=== PATIENT | male | born 1950 ===

== ENCOUNTER 2017-09-13 10:14 | Inpatient (IN) ==
[2017-09-13] MEDS ORDERED: ONDANSETRON 4 MG/2 ML VIAL IV STA (11:29)
[2017-09-13] MEDS ORDERED: SODIUM CHLORIDE 0.9% 1,000 ML IV STA ×2 (11:29→12:15)
[2017-09-13] MEDS ORDERED: fentaNYL 100 MCG/2 ML VIAL IV STA (11:30)
[2017-09-13 11:41] LABS: Basophils % 0.1 % (0.0-0.8); Hematocrit 25.3 VOL% (42.0-52.0); Hemoglobin 8.2 GM/DL (14.0-18.0); Immature Granulocytes % 0.8 %; Immature Granulocytes Absolute 0.07 #; Lymphocytes # 1.2 10*3/uL (1.4-4.0); Lymphocytes % 13.5 % (21.2-54.2); Mean Corpuscular HGB Conc 32.4 GM/DL (32-36); Mean Corpuscular Hemoglobin 31 PG (27-34); Mean Corpuscular Volume 96.9 FL (87-102); Mean Platelet Volume 11.7 FL (9.6-12.0); Monocytes # 1.7 10*3/uL (0.11-0.8); Monocytes % 18.9 % (1.7-12.7); Neutrophils # 6.1 10*3/uL (1.4-7.4); Neutrophils % 66.7 % (38.7-73.9); Red Blood Count 2.61 MC/CUMM (3.8-5.5); Red Cell Distribution Width 16.6 % (9.3-17.3); White Blood Count 9.1 T/CUMM (4-12)
[2017-09-13 11:45] LABS: Platelet Count 98 T/CUMM (130-400)
[2017-09-13] MEDS ORDERED: ONDANSETRON 4 MG/2 ML VIAL ONE (11:45)
[2017-09-13 11:48] LABS: INR 1.1; PT Patient Result 11.2 SECS; Partial Thromboplastin Time 24.7 SECS (0-40)
[2017-09-13 11:58] LABS: Albumin 2.5 G/DL (3.4-5.0); Bilirubin,Total 0.4 MG/DL (0.2-1.0); Calcium 8.4 MG/DL (8.5-10.1); Osmolality,Calculated 290.1 MOS/KG (273-304); Potassium 4.3 MMOL/L (3.5-5.1); Total Protein 6.1 G/DL (6.4-8.3)
[2017-09-13 12:02] LABS: Band Neutrophils 5 % (0-10); Lymphocytes 12 % (20-55); Myelocytes 1 %; Segmented Neutrophils 67 % (50-85); Total Cells Counted 100
[2017-09-13] MEDS ORDERED: fentaNYL 100 MCG/2 ML VIAL ONE (12:02)
[2017-09-13 12:03] LABS: Hypochromasia 1+; Microcytosis 1+; Platelet Estimate Decreased
[2017-09-13 12:04] LABS: Acanthocytes Few
[2017-09-13] MEDS ORDERED: guaiFENesin/DM ER 600-30 MG TABLET PO PRN (13:20)
[2017-09-13] MEDS ORDERED: MORPHINE 2 MG/1 ML SYRINGE IV PRN (13:20)
[2017-09-13] MEDS ORDERED: ACETAMINOPHEN 325 MG TABLET PO PRN ×2 (13:20)
[2017-09-13] MEDS ORDERED: diphenhydrAMINE CAP 25 MG CAPSULE PO PRN (13:20)
[2017-09-13] MEDS ORDERED: ONDANSETRON 4 MG/2 ML VIAL IV PRN (13:20)
[2017-09-13] MEDS ORDERED: SODIUM CHLORIDE 0.9% 1,000 ML IV SCH (13:30)
[2017-09-13] MEDS: DOCUSATE SODIUM 100 MG CAPSULE PO SCH ×2 (15:07→22:27)
[2017-09-13] MEDS: HALOPERIDOL 5 MG TABLET PO SCH ×2 (15:07→23:48)
[2017-09-13] MEDS: DIVALPROEX 500 MG TABLET PO SCH ×2 (15:07→22:28)
[2017-09-13] MEDS: SODIUM CHLORIDE 0.9% 1,000 ML IV SCH (15:08)
[2017-09-13] MEDS: BENZTROPINE 1 MG TABLET PO SCH ×2 (15:08→22:27)
[2017-09-13] MEDS: PANTOPRAZOLE 40 MG TABLET PO SCH (15:08)
[2017-09-13] MEDS ORDERED: SODIUM CHLORIDE 0.9% 1,000 ML IV PRN (17:08)
[2017-09-13] MEDS ORDERED: LURASIDONE 60 MG TABLET PO SCH (21:00)
[2017-09-13] MEDS: QUEtiapine 100 MG TABLET PO SCH (23:48)
[2017-09-14] MEDS: LURASIDONE 40 MG TABLET PO SCH ×2 (06:11→22:23)
[2017-09-14] MEDS: SODIUM CHLORIDE 0.9% 1,000 ML IV SCH ×3 (06:14→14:14)
[2017-09-14 06:21] LABS: Hematocrit 25.9 VOL% (42.0-52.0); Hemoglobin 8.9 GM/DL (14.0-18.0); Immature Granulocytes % 0.5 %; Immature Granulocytes Absolute 0.04 #; Lymphocytes # 1.3 10*3/uL (1.4-4.0); Lymphocytes % 15.7 % (21.2-54.2); Mean Corpuscular HGB Conc 34.4 GM/DL (32-36); Mean Corpuscular Hemoglobin 32 PG (27-34); Mean Corpuscular Volume 92.2 FL (87-102); Mean Platelet Volume 12.3 FL (9.6-12.0); Monocytes # 1.7 10*3/uL (0.11-0.8); Monocytes % 20.6 % (1.7-12.7); Neutrophils # 5.2 10*3/uL (1.4-7.4); Neutrophils % 63.2 % (38.7-73.9); Platelet Count 62 T/CUMM (130-400); Red Blood Count 2.81 MC/CUMM (3.8-5.5); Red Cell Distribution Width 16.6 % (9.3-17.3); White Blood Count 8.2 T/CUMM (4-12)
[2017-09-14 06:40] LABS: Band Neutrophils 11 % (0-10); Lymphocytes 14 % (20-55); Segmented Neutrophils 61 % (50-85); Total Cells Counted 100
[2017-09-14 06:41] LABS: Burr Cells Slight; Microcytosis 1+
[2017-09-14 06:42] LABS: Hypochromasia Slight; Ovalocytes Slight; Platelet Estimate Decreased
[2017-09-14 07:01] LABS: Calcium 7.9 MG/DL (8.5-10.1); Osmolality,Calculated 285.4 MOS/KG (273-304); Potassium 4.7 MMOL/L (3.5-5.1); Risk Ratio 1.6; Thyroid Stimulating Hormone 4.82 uIU/ml (0.358-3.74)
[2017-09-14] MEDS ORDERED: ceFAZolin 2,000 MG in PREMIX 1 EACH IV ONE (08:00)
[2017-09-14] MEDS: PANTOPRAZOLE 40 MG TABLET PO SCH (10:06)
[2017-09-14] MEDS: DIVALPROEX 500 MG TABLET PO SCH ×2 (10:06→22:23)
[2017-09-14] MEDS ORDERED: BACITRACIN OINT 0.9 GM PACK TOP ONE ×2 (10:54→13:33)
[2017-09-14] MEDS ORDERED: TRANEXAMIC ACID 1,000 MG/10 ML VIAL IV ONE (10:54)
[2017-09-14] MEDS ORDERED: LACTATED RINGERS 1,000 ML IV SCH (12:00)
[2017-09-14] MEDS ORDERED: ceFAZolin 1,000 MG VIAL ONE (12:42)
[2017-09-14] MEDS ORDERED: oxyCODONE IR 5 MG TABLET PO PRN ×2 (13:52)
[2017-09-14] MEDS ORDERED: MORPHINE 2 MG/1 ML SYRINGE IV PRN ×2 (13:52)
[2017-09-14 14:07] LABS: Apearance,Urine CLEAR (Clear); Bacteria,Urine Occasional /HPF (Few); Bilirubin,Urine Negative (Negative); Blood, Urine Negative (Negative); Glucose,Urine (UA) Negative (Negative); Ketones,Urine Negative (Negative); Nitrite,Urine Negative (Negative); Protein,Urine Negative; RBC,Urine 1 /HPF (0-4); Squamous Epithelial Cell,Urine Occasional /HPF (0-10); Urine Color Yellow (Yellow); Urine Specific Gravity 1.013 (1.001-1.035); WBC,Urine <1 /HPF (0-6)
[2017-09-14] MEDS ORDERED: SEVOFLURANE 1 UNIT/15 MINUTE INH ONE (14:13)
[2017-09-14] MEDS ORDERED: PROPOFOL 200 MG/20 ML VIAL IV ONE (14:13)
[2017-09-14] MEDS ORDERED: ONDANSETRON 4 MG/2 ML VIAL ONE (14:14)
[2017-09-14] MEDS ORDERED: PHENYLEPHRINE 1 MG/10 ML SYRINGE IV ONE (14:14)
[2017-09-14] MEDS: LACTATED RINGERS 1,000 ML IV SCH (14:14)
[2017-09-14] MEDS ORDERED: LACTATED RINGERS 1,000 ML IV ONE (14:14)
[2017-09-14] MEDS ORDERED: GLYCOPYRROLATE 0.4 MG/2 ML VIAL ONE (14:14)
[2017-09-14 14:34] LABS: Hematocrit 30.5 VOL% (42.0-52.0); Immature Granulocytes % 0.5 %; Immature Granulocytes Absolute 0.04 #; Lymphocytes # 1.2 10*3/uL (1.4-4.0); Lymphocytes % 14.3 % (21.2-54.2); Mean Corpuscular HGB Conc 32.8 GM/DL (32-36); Mean Corpuscular Hemoglobin 31 PG (27-34); Mean Corpuscular Volume 94.1 FL (87-102); Mean Platelet Volume 11.7 FL (9.6-12.0); Monocytes % 22.9 % (1.7-12.7); Neutrophils # 5.4 10*3/uL (1.4-7.4); Neutrophils % 62.3 % (38.7-73.9); Red Blood Count 3.24 MC/CUMM (3.8-5.5); Red Cell Distribution Width 16.3 % (9.3-17.3); White Blood Count 8.6 T/CUMM (4-12)
[2017-09-14 14:35] LABS: Platelet Count 64 T/CUMM (130-400)
[2017-09-14] MEDS: BENZTROPINE 1 MG TABLET PO SCH ×2 (15:57→22:21)
[2017-09-14] MEDS: DOCUSATE SODIUM 100 MG CAPSULE PO SCH ×2 (15:57→22:23)
[2017-09-14] MEDS: HALOPERIDOL 5 MG TABLET PO SCH ×2 (15:58→22:23)
[2017-09-14] MEDS: FLUoxetine 20 MG CAPSULE PO SCH (15:59)
[2017-09-14 16:38] LABS: Band Neutrophils 10 % (0-10); Lymphocytes 17 % (20-55); Segmented Neutrophils 54 % (50-85); Total Cells Counted 100
[2017-09-14 16:39] LABS: Platelet Estimate Decreased
[2017-09-14] MEDS: ceFAZolin 2,000 MG in PREMIX 1 EACH IV SCH (16:45)
[2017-09-14] MEDS: ACETAMINOPHEN 500 MG TABLET PO SCH (18:38)
[2017-09-14] MEDS: QUEtiapine 100 MG TABLET PO SCH (22:23)
[2017-09-15] MEDS: ACETAMINOPHEN 500 MG TABLET PO SCH ×3 (00:03→10:56)
[2017-09-15] MEDS ORDERED: HALOPERIDOL 5 MG/ML AMP IM ONE (01:16)
[2017-09-15] MEDS: LACTATED RINGERS 1,000 ML IV SCH (03:29)
[2017-09-15] MEDS: ceFAZolin 2,000 MG in PREMIX 1 EACH IV SCH (03:30)
[2017-09-15 05:11] LABS: ABG Base Excess 2.2 MMOL/L (-2.5-2.5); ABG HCO3 26.2 MMOL/L (20-26); ABG Oxygen Saturation 88.6 % (95-100); ABG PH 7.431 (7.35-7.45); ABG PO2 57.2 MM HG (80-95); ABG TCO2 24.5 MMOL/L (23-27); Allen Test Positive
[2017-09-15 05:23] LABS: Basophils % 0.2 % (0.0-0.8); Hematocrit 26.9 VOL% (42.0-52.0); Hemoglobin 9.2 GM/DL (14.0-18.0); Immature Granulocytes % 0.5 %; Immature Granulocytes Absolute 0.03 #; Lymphocytes # 0.6 10*3/uL (1.4-4.0); Lymphocytes % 9.3 % (21.2-54.2); Mean Corpuscular HGB Conc 34.2 GM/DL (32-36); Mean Corpuscular Hemoglobin 31 PG (27-34); Mean Corpuscular Volume 89.4 FL (87-102); Mean Platelet Volume 12.1 FL (9.6-12.0); Monocytes # 1.7 10*3/uL (0.11-0.8); Monocytes % 25.4 % (1.7-12.7); Neutrophils # 4.3 10*3/uL (1.4-7.4); Neutrophils % 64.6 % (38.7-73.9); Red Blood Count 3.01 MC/CUMM (3.8-5.5); Red Cell Distribution Width 16.5 % (9.3-17.3); White Blood Count 6.6 T/CUMM (4-12)
[2017-09-15 05:28] LABS: Platelet Count 59 T/CUMM (130-400)
[2017-09-15 05:58] LABS: Calcium 7.9 MG/DL (8.5-10.1); Osmolality,Calculated 288.1 MOS/KG (273-304); Potassium 4.5 MMOL/L (3.5-5.1)
[2017-09-15 05:59] LABS: Band Neutrophils 11 % (0-10); Lymphocytes 12 % (20-55); Segmented Neutrophils 52 % (50-85); Total Cells Counted 100
[2017-09-15 06:00] LABS: Giant Platelets Few; Hypochromasia 1+; Microcytosis Slight; Ovalocytes Slight; Platelet Estimate Decreased
[2017-09-15] MEDS: BENZTROPINE 1 MG TABLET PO SCH ×2 (10:47→21:51)
[2017-09-15] MEDS: HALOPERIDOL 5 MG TABLET PO SCH ×2 (10:47→21:47)
[2017-09-15] MEDS: PANTOPRAZOLE 40 MG TABLET PO SCH (10:48)
[2017-09-15] MEDS: FLUoxetine 20 MG CAPSULE PO SCH (10:48)
[2017-09-15] MEDS: DIVALPROEX 500 MG TABLET PO SCH ×2 (10:48→21:51)
[2017-09-15] MEDS: DOCUSATE SODIUM 100 MG CAPSULE PO SCH ×2 (10:53→21:44)
[2017-09-15] MEDS ORDERED: TUBERCULIN SKIN TEST 0.1 ML SYRINGE INTRADERM ONE (20:11)
[2017-09-15] MEDS: LURASIDONE 40 MG TABLET PO SCH (21:44)
[2017-09-15] MEDS: QUEtiapine 100 MG TABLET PO SCH (21:45)
[2017-09-16 05:47] LABS: Hematocrit 24.4 VOL% (42.0-52.0); Immature Granulocytes % 0.3 %; Immature Granulocytes Absolute 0.02 #; Lymphocytes # 0.9 10*3/uL (1.4-4.0); Lymphocytes % 14.7 % (21.2-54.2); Mean Corpuscular HGB Conc 32.8 GM/DL (32-36); Mean Corpuscular Hemoglobin 31 PG (27-34); Mean Corpuscular Volume 93.1 FL (87-102); Mean Platelet Volume 11.5 FL (9.6-12.0); Monocytes # 1.4 10*3/uL (0.11-0.8); Monocytes % 24.2 % (1.7-12.7); Neutrophils # 3.6 10*3/uL (1.4-7.4); Neutrophils % 60.8 % (38.7-73.9); Red Blood Count 2.62 MC/CUMM (3.8-5.5); Red Cell Distribution Width 16.5 % (9.3-17.3); White Blood Count 5.9 T/CUMM (4-12)
[2017-09-16 06:00] LABS: Platelet Count 60 T/CUMM (130-400)
[2017-09-16 06:09] LABS: Band Neutrophils 9 % (0-10); Giant Platelets Few; Hypochromasia 1+; Lymphocytes 15 % (20-55); Ovalocytes Slight; Platelet Estimate Decreased; Segmented Neutrophils 57 % (50-85); Total Cells Counted 100
[2017-09-16 06:10] LABS: Microcytosis Slight
[2017-09-16 06:28] LABS: Calcium 7.8 MG/DL (8.5-10.1); Osmolality,Calculated 296.6 MOS/KG (273-304); Potassium 4.1 MMOL/L (3.5-5.1)
[2017-09-16] MEDS ORDERED: SODIUM CHLORIDE 0.9% 1,000 ML IV PRN (06:42)
[2017-09-16] MEDS ORDERED: FUROSEMIDE 40 MG/4 ML VIAL IV PRN (06:42)
[2017-09-16] MEDS: DIVALPROEX 500 MG TABLET PO SCH ×2 (11:24→21:15)
[2017-09-16] MEDS: HALOPERIDOL 5 MG TABLET PO SCH (11:25)
[2017-09-16] MEDS: PANTOPRAZOLE 40 MG TABLET PO SCH (11:25)
[2017-09-16] MEDS: FLUoxetine 20 MG CAPSULE PO SCH (11:25)
[2017-09-16] MEDS: BENZTROPINE 1 MG TABLET PO SCH ×2 (11:25→21:16)
[2017-09-16] MEDS: DOCUSATE SODIUM 100 MG CAPSULE PO SCH ×2 (11:25→21:15)
[2017-09-16] MEDS: ALBUTEROL/IPRATROPIUM 3 ML NEB RESP TX SCH ×2 (14:04→19:44)
[2017-09-16] MEDS: LURASIDONE 40 MG TABLET PO SCH (21:15)
[2017-09-17] MEDS: ALBUTEROL/IPRATROPIUM 3 ML NEB RESP TX SCH ×5 (00:50→23:53)
[2017-09-17 06:13] LABS: Basophils % 0.4 % (0.0-0.8); Hematocrit 34.6 VOL% (42.0-52.0); Immature Granulocytes % 0.7 %; Immature Granulocytes Absolute 0.05 #; Lymphocytes # 0.7 10*3/uL (1.4-4.0); Mean Corpuscular HGB Conc 33.8 GM/DL (32-36); Mean Corpuscular Hemoglobin 30 PG (27-34); Mean Corpuscular Volume 89.9 FL (87-102); Mean Platelet Volume 11.7 FL (9.6-12.0); Monocytes # 1.5 10*3/uL (0.11-0.8); Monocytes % 21.9 % (1.7-12.7); NRBC # 0.02 10*3/uL; Neutrophils # 4.7 10*3/uL (1.4-7.4); Platelet Count 72 T/CUMM (130-400); Red Blood Count 3.85 MC/CUMM (3.8-5.5); Red Cell Distribution Width 17.2 % (9.3-17.3)
[2017-09-17 06:15] LABS: Hemoglobin 11.7 GM/DL (14.0-18.0)
[2017-09-17 06:35] LABS: Band Neutrophils 13 % (0-10); Hypochromasia 1+; Lymphocytes 9 % (20-55); Metamyelocytes 4 %; Myelocytes 2 %; Nucleated Red Blood Cells 2 (0-5); Segmented Neutrophils 58 % (50-85); Total Cells Counted 100
[2017-09-17 06:36] LABS: Burr Cells Slight; Microcytosis Slight
[2017-09-17 06:37] LABS: Platelet Estimate Decreased
[2017-09-17] MEDS: DOCUSATE SODIUM 100 MG CAPSULE PO SCH ×2 (10:07→21:01)
[2017-09-17] MEDS: BENZTROPINE 1 MG TABLET PO SCH ×2 (10:07→21:01)
[2017-09-17] MEDS: DIVALPROEX 500 MG TABLET PO SCH ×2 (10:07→21:01)
[2017-09-17] MEDS: PANTOPRAZOLE 40 MG TABLET PO SCH (10:08)
[2017-09-17] MEDS: FLUoxetine 20 MG CAPSULE PO SCH (10:08)
[2017-09-17] MEDS: LURASIDONE 40 MG TABLET PO SCH (21:01)
[2017-09-18] MEDS: ALBUTEROL/IPRATROPIUM 3 ML NEB RESP TX SCH ×3 (07:05→20:16)
[2017-09-18] MEDS: DOCUSATE SODIUM 100 MG CAPSULE PO SCH ×2 (09:22→21:50)
[2017-09-18] MEDS: PANTOPRAZOLE 40 MG TABLET PO SCH (09:22)
[2017-09-18] MEDS: DIVALPROEX 500 MG TABLET PO SCH ×2 (09:22→21:50)
[2017-09-18] MEDS: FLUoxetine 20 MG CAPSULE PO SCH (09:22)
[2017-09-18] MEDS: BENZTROPINE 1 MG TABLET PO SCH ×2 (09:22→21:50)
[2017-09-18] MEDS: MAGNESIUM HYDROXIDE SUSP 30 ML UDCUP PO PRN (19:08)
[2017-09-18] MEDS: LURASIDONE 40 MG TABLET PO SCH (21:50)
[2017-09-19] MEDS: ALBUTEROL/IPRATROPIUM 3 ML NEB RESP TX SCH ×4 (00:47→20:11)
[2017-09-19 06:34] LABS: Basophils % 0.2 % (0.0-0.8); Eosinophils # 0.1 10*3/uL (0.0-0.87); Eosinophils % 1.3 % (0.00-10.9); Hematocrit 33.6 VOL% (42.0-52.0); Hemoglobin 11.3 GM/DL (14.0-18.0); Immature Granulocytes % 1.7 %; Immature Granulocytes Absolute 0.15 #; Lymphocytes % 10.9 % (21.2-54.2); Mean Corpuscular HGB Conc 33.6 GM/DL (32-36); Mean Corpuscular Hemoglobin 30 PG (27-34); Mean Corpuscular Volume 89.8 FL (87-102); Mean Platelet Volume 10.1 FL (9.6-12.0); Monocytes # 1.3 10*3/uL (0.11-0.8); Monocytes % 15.1 % (1.7-12.7); Neutrophils # 6.2 10*3/uL (1.4-7.4); Neutrophils % 70.8 % (38.7-73.9); Platelet Count 120 T/CUMM (130-400); Red Blood Count 3.74 MC/CUMM (3.8-5.5); Red Cell Distribution Width 16.7 % (9.3-17.3); White Blood Count 8.7 T/CUMM (4-12)
[2017-09-19 07:10] LABS: Calcium 8.5 MG/DL (8.5-10.1); Osmolality,Calculated 290.7 MOS/KG (273-304)
[2017-09-19] MEDS: BENZTROPINE 1 MG TABLET PO SCH ×2 (09:59→20:11)
[2017-09-19] MEDS: FLUoxetine 20 MG CAPSULE PO SCH (09:59)
[2017-09-19] MEDS: DOCUSATE SODIUM 100 MG CAPSULE PO SCH ×2 (09:59→20:11)
[2017-09-19] MEDS: DIVALPROEX 500 MG TABLET PO SCH ×2 (09:59→20:11)
[2017-09-19] MEDS: PANTOPRAZOLE 40 MG TABLET PO SCH (09:59)
[2017-09-19] MEDS: MAGNESIUM HYDROXIDE SUSP 30 ML UDCUP PO PRN (10:00)
[2017-09-19] MEDS: LURASIDONE 40 MG TABLET PO SCH (20:12)
[2017-09-20] MEDS: ALBUTEROL/IPRATROPIUM 3 ML NEB RESP TX SCH ×4 (00:13→19:05)
[2017-09-20] MEDS: FLUoxetine 20 MG CAPSULE PO SCH (11:20)
[2017-09-20] MEDS: BENZTROPINE 1 MG TABLET PO SCH ×2 (11:20→20:25)
[2017-09-20] MEDS: PANTOPRAZOLE 40 MG TABLET PO SCH (11:21)
[2017-09-20] MEDS: DOCUSATE SODIUM 100 MG CAPSULE PO SCH ×2 (11:21→20:28)
[2017-09-20] MEDS: DIVALPROEX 500 MG TABLET PO SCH ×2 (11:21→20:26)
[2017-09-20] MEDS: LURASIDONE 40 MG TABLET PO SCH (20:25)
[2017-09-21] MEDS: ALBUTEROL/IPRATROPIUM 3 ML NEB RESP TX SCH ×4 (00:20→19:47)
[2017-09-21] MEDS: DOCUSATE SODIUM 100 MG CAPSULE PO SCH ×2 (09:04→21:08)
[2017-09-21] MEDS: BENZTROPINE 1 MG TABLET PO SCH ×2 (09:04→21:07)
[2017-09-21] MEDS: DIVALPROEX 500 MG TABLET PO SCH ×2 (09:04→21:07)
[2017-09-21] MEDS: PANTOPRAZOLE 40 MG TABLET PO SCH (09:04)
[2017-09-21] MEDS: FLUoxetine 20 MG CAPSULE PO SCH (09:05)
[2017-09-21] MEDS: LURASIDONE 40 MG TABLET PO SCH (21:07)
[2017-09-21] MEDS ORDERED: ZIPRASIDONE 20 MG/1 ML VIAL IM ONE (23:00)
[2017-09-22] MEDS: ALBUTEROL/IPRATROPIUM 3 ML NEB RESP TX SCH ×4 (00:57→19:25)
[2017-09-22] MEDS: DOCUSATE SODIUM 100 MG CAPSULE PO SCH ×2 (09:30→20:03)
[2017-09-22] MEDS: PANTOPRAZOLE 40 MG TABLET PO SCH (09:30)
[2017-09-22] MEDS: DIVALPROEX 500 MG TABLET PO SCH ×2 (09:30→20:03)
[2017-09-22] MEDS: FLUoxetine 20 MG CAPSULE PO SCH (09:30)
[2017-09-22] MEDS: BENZTROPINE 1 MG TABLET PO SCH ×2 (09:31→20:03)
[2017-09-22] MEDS: LURASIDONE 40 MG TABLET PO SCH (20:03)
[2017-09-23] MEDS: ALBUTEROL/IPRATROPIUM 3 ML NEB RESP TX SCH ×3 (00:14→13:45)
[2017-09-23] MEDS: DIVALPROEX 500 MG TABLET PO SCH (09:36)
[2017-09-23] MEDS: PANTOPRAZOLE 40 MG TABLET PO SCH (09:36)
[2017-09-23] MEDS: BENZTROPINE 1 MG TABLET PO SCH (09:36)
[2017-09-23] MEDS: FLUoxetine 20 MG CAPSULE PO SCH (09:36)
[2017-09-23] MEDS: DOCUSATE SODIUM 100 MG CAPSULE PO SCH (09:36)
[2017-09-23 16:11] VITALS: BP 151/99
== END 2017-09-23 17:19 | disposition home health service (06) | DRG 481 ==
LOC: N.ED 10:14 → N.EDINP 12:16 → N.3E 14:00
PROVIDERS: ADMIT Orthopaedic Surgery; ATTEND Orthopaedic Surgery

== ENCOUNTER 2017-10-15 17:52 | Inpatient (IN) ==
[2017-10-15] MEDS ORDERED: ONDANSETRON 4 MG/2 ML VIAL IV STA (18:37)
[2017-10-15] MEDS ORDERED: MORPHINE 4 MG/1 ML VIAL IV STA (18:37)
[2017-10-15] MEDS ORDERED: VANCOMYCIN INJ 1,000 MG in SODIUM CHLORIDE 0.9% 250 ML IV STA (18:46)
[2017-10-15] MEDS ORDERED: SODIUM CHLORIDE 0.9% 1,000 ML IV STA (19:02)
[2017-10-15] MEDS ORDERED: VANCOMYCIN 1,000 MG VIAL ONE (19:04)
[2017-10-15] MEDS ORDERED: ONDANSETRON 4 MG/2 ML VIAL ONE (19:04)
[2017-10-15] MEDS ORDERED: MORPHINE 4 MG/1 ML VIAL ONE (19:06)
[2017-10-15 19:55] LABS: Alanine Aminotransferase 23 U/L (16-61); Albumin 1.3 G/DL (3.4-5.0); Alkaline Phosphatase 309 U/L (45-117); Aspartate Amino Transferase 44 U/L (0-37); Blood Urea Nitrogen 15 MG/DL (7-18); Calcium 7.6 MG/DL (8.5-10.1); Glucose 69 MG/DL (74-106); Osmolality,Calculated 279.3 MOS/KG (273-304); Sodium 141 MMOL/L (136-145); Total Protein 5.9 G/DL (6.4-8.3); Troponin I Only < 0.015 NG/ML (0.00-0.045)
[2017-10-15 19:57] LABS: Basophils % 0.1 % (0.0-0.8); Eosinophils % 0.1 % (0.00-10.9); Immature Granulocytes % 1.4 %; Immature Granulocytes Absolute 0.22 #; Lymphocytes # 1.5 10*3/uL (1.4-4.0); Lymphocytes % 9.4 % (21.2-54.2); Mean Corpuscular HGB Conc 32.9 GM/DL (32-36); Mean Corpuscular Hemoglobin 29 PG (27-34); Mean Corpuscular Volume 88.2 FL (87-102); Mean Platelet Volume 9.5 FL (9.6-12.0); Monocytes # 2.2 10*3/uL (0.11-0.8); Monocytes % 14.1 % (1.7-12.7); Neutrophils # 11.8 10*3/uL (1.4-7.4); Neutrophils % 74.9 % (38.7-73.9); Platelet Count 374 T/CUMM (130-400); Red Blood Count 2.55 MC/CUMM (3.8-5.5); Red Cell Distribution Width 17.2 % (9.3-17.3); White Blood Count 15.8 T/CUMM (4-12)
[2017-10-15 19:58] LABS: Hematocrit 22.5 VOL% (42.0-52.0); Hemoglobin 7.4 GM/DL (14.0-18.0)
[2017-10-15 20:00] LABS: INR 1.1; PT Patient Result 11.9 SECS
[2017-10-15 20:58] LABS: Sedimentation Rate-Westergren 125 MM/HR (0-20)
[2017-10-15] MEDS ORDERED: ONDANSETRON 4 MG/2 ML VIAL IV PRN (21:28)
[2017-10-15] MEDS ORDERED: LORazepam 2 MG/1 ML VIAL ONE (21:33)
[2017-10-15] MEDS ORDERED: MORPHINE 4 MG/1 ML VIAL IV PRN (21:34)
[2017-10-15] MEDS ORDERED: MAGNESIUM HYDROXIDE SUSP 30 ML UDCUP PO PRN (21:35)
[2017-10-15 21:42] LABS: Lymphocytes 5 % (20-55)
[2017-10-15 21:43] LABS: Band Neutrophils 10 % (0-10); Eosinophils 1 % (0-10); Hypochromasia 2+; Platelet Estimate Normal; Segmented Neutrophils 68 % (50-85); Total Cells Counted 100
[2017-10-15] MEDS ORDERED: LORazepam 2 MG/1 ML VIAL IV STA (22:04)
[2017-10-15] MEDS: PANTOPRAZOLE 40 MG VIAL IV SCH (22:30)
[2017-10-15] MEDS: QUEtiapine 100 MG TABLET PO SCH (22:30)
[2017-10-15] MEDS: DEXTROSE 5% NACL 0.9% 1,000 ML IV SCH (22:30)
[2017-10-15] MEDS ORDERED: HALOPERIDOL 5 MG TABLET PO SCH (23:00)
[2017-10-15] MEDS ORDERED: HALOPERIDOL 5 MG/ML AMP IV PRN (23:36)
[2017-10-15 23:45] LABS: Hematocrit 24.4 VOL% (42.0-52.0); Hemoglobin 7.9 GM/DL (14.0-18.0)
[2017-10-15] MEDS: DIVALPROEX 500 MG TABLET PO SCH (23:48)
[2017-10-15] MEDS: BENZTROPINE 1 MG TABLET PO SCH (23:48)
[2017-10-16] MEDS: HALOPERIDOL 5 MG/ML AMP IM PRN (00:31)
[2017-10-16] MEDS ORDERED: SODIUM CHLORIDE 0.9% 1,000 ML IV PRN (02:55)
[2017-10-16 05:16] LABS: Basophils % 0.1 % (0.0-0.8); Eosinophils % 0.1 % (0.00-10.9); Hematocrit 26.6 VOL% (42.0-52.0); Hemoglobin 8.8 GM/DL (14.0-18.0); Immature Granulocytes % 1.4 %; Immature Granulocytes Absolute 0.22 #; Lymphocytes # 1.4 10*3/uL (1.4-4.0); Lymphocytes % 8.7 % (21.2-54.2); Mean Corpuscular HGB Conc 33.1 GM/DL (32-36); Mean Corpuscular Hemoglobin 29 PG (27-34); Mean Corpuscular Volume 88.4 FL (87-102); Mean Platelet Volume 9.6 FL (9.6-12.0); Monocytes # 2.3 10*3/uL (0.11-0.8); Monocytes % 14.7 % (1.7-12.7); NRBC # 0.03 10*3/uL; Neutrophils # 11.9 10*3/uL (1.4-7.4); Platelet Count 416 T/CUMM (130-400); Red Blood Count 3.01 MC/CUMM (3.8-5.5); Red Cell Distribution Width 17.1 % (9.3-17.3); White Blood Count 15.8 T/CUMM (4-12)
[2017-10-16] MEDS: DEXTROSE 5% NACL 0.9% 1,000 ML IV SCH ×2 (05:30→21:30)
[2017-10-16 05:42] LABS: Albumin 1.3 G/DL (3.4-5.0); Calcium 7.9 MG/DL (8.5-10.1); Osmolality,Calculated 285.7 MOS/KG (273-304); Potassium 4.2 MMOL/L (3.5-5.1); Total Protein 6.1 G/DL (6.4-8.3)
[2017-10-16 05:43] LABS: Albumin 1.3 G/DL (3.4-5.0); Bilirubin,Direct 0.34 MG/DL (0.0-0.20); Bilirubin,Indirect 0.3 MG/DL (0.0-1.0); Bilirubin,Total 0.6 MG/DL (0.2-1.0)
[2017-10-16 06:20] LABS: Band Neutrophils 4 % (0-10); Lymphocytes 10 % (20-55); Segmented Neutrophils 77 % (50-85); Total Cells Counted 100
[2017-10-16 06:21] LABS: Burr Cells 1+; Macrocytosis 1+; Platelet Estimate Increased; Polychromasia 1+; Target Cells Slight
[2017-10-16] MEDS: VANCOMYCIN INJ 1,000 MG in SODIUM CHLORIDE 0.9% 250 ML IV SCH (10:02)
[2017-10-16] MEDS: PANTOPRAZOLE 40 MG VIAL IV SCH (10:04)
[2017-10-16] MEDS: BENZTROPINE 1 MG TABLET PO SCH ×2 (10:07→21:16)
[2017-10-16] MEDS: FLUoxetine 20 MG CAPSULE PO SCH (10:08)
[2017-10-16] MEDS: DIVALPROEX 500 MG TABLET PO SCH ×2 (10:09→21:16)
[2017-10-16] MEDS: CEFEPIME 2,000 MG in SYRINGE 1 EACH IV SCH ×2 (18:30)
[2017-10-16] MEDS: ENOXAPARIN 80 MG/0.8 ML SYRINGE SUBCUT SCH (18:34)
[2017-10-16] MEDS: LURASIDONE 40 MG TABLET PO SCH (21:17)
[2017-10-17] MEDS: QUEtiapine 100 MG TABLET PO SCH ×2 (01:52→23:58)
[2017-10-17] MEDS: VANCOMYCIN INJ 1,000 MG in SODIUM CHLORIDE 0.9% 250 ML IV SCH ×2 (02:57→20:24)
[2017-10-17] MEDS: DEXTROSE 5% NACL 0.9% 1,000 ML IV SCH ×4 (03:02→19:28)
[2017-10-17] MEDS: ENOXAPARIN 80 MG/0.8 ML SYRINGE SUBCUT SCH (04:30)
[2017-10-17] MEDS: PANTOPRAZOLE 40 MG VIAL IV SCH (10:28)
[2017-10-17] MEDS: FLUoxetine 20 MG CAPSULE PO SCH (10:28)
[2017-10-17] MEDS: DIVALPROEX 500 MG TABLET PO SCH ×2 (10:28→23:58)
[2017-10-17] MEDS: BENZTROPINE 1 MG TABLET PO SCH ×2 (10:28→23:58)
[2017-10-17] MEDS ORDERED: VANCOMYCIN 500 MG VIAL ONE ×2 (12:24→12:25)
[2017-10-17] MEDS ORDERED: TOBRAMYCIN 80 MG/2 ML VIAL ONE (12:25)
[2017-10-17] MEDS ORDERED: TOBRAMYCIN 1.2 GM VIAL TOP ONE (12:28)
[2017-10-17] MEDS ORDERED: BACITRACIN OINT 0.9 GM PACK TOP ONE (12:33)
[2017-10-17] MEDS ORDERED: MORPHINE 4 MG/1 ML VIAL IV PRN ×2 (14:22)
[2017-10-17] MEDS: KETOROLAC 30 MG/1 ML VIAL IV SCH ×2 (18:54→21:45)
[2017-10-17] MEDS: CEFEPIME 2,000 MG in SYRINGE 1 EACH IV SCH ×2 (19:00)
[2017-10-17] MEDS: LEVOFLOXACIN INJ 750 MG in PREMIX 1 EACH IV SCH (19:03)
[2017-10-17] MEDS: DOCUSATE SODIUM 100 MG CAPSULE PO SCH (23:14)
[2017-10-17] MEDS: LURASIDONE 40 MG TABLET PO SCH (23:58)
[2017-10-18] MEDS: KETOROLAC 30 MG/1 ML VIAL IV SCH ×2 (02:33→10:09)
[2017-10-18] MEDS: CEFEPIME 2,000 MG in SYRINGE 1 EACH IV SCH ×4 (02:42→16:33)
[2017-10-18] MEDS: VANCOMYCIN INJ 1,000 MG in SODIUM CHLORIDE 0.9% 250 ML IV SCH ×2 (02:43→18:44)
[2017-10-18 05:45] LABS: Basophils % 0.3 % (0.0-0.8); Eosinophils % 0.3 % (0.00-10.9); Hematocrit 37.4 VOL% (42.0-52.0); Immature Granulocytes % 0.9 %; Lymphocytes # 0.6 10*3/uL (1.4-4.0); Lymphocytes % 5.7 % (21.2-54.2); Mean Corpuscular HGB Conc 32.1 GM/DL (32-36); Mean Corpuscular Hemoglobin 29 PG (27-34); Mean Corpuscular Volume 89.9 FL (87-102); Neutrophils # 9.1 10*3/uL (1.4-7.4); Neutrophils % 83.8 % (38.7-73.9); Platelet Count 448 T/CUMM (130-400); Red Blood Count 4.16 MC/CUMM (3.8-5.5); Red Cell Distribution Width 17.2 % (9.3-17.3); White Blood Count 10.9 T/CUMM (4-12)
[2017-10-18 06:06] LABS: Band Neutrophils 16 % (0-10); Eosinophils 1 % (0-10); Hypochromasia 1+; Lymphocytes 1 % (20-55); Ovalocytes Slight; Platelet Estimate Adequate; Segmented Neutrophils 78 % (50-85); Total Cells Counted 100
[2017-10-18 06:07] LABS: Giant Platelets Few; Macrocytosis Slight
[2017-10-18 06:18] LABS: Calcium 7.4 MG/DL (8.5-10.1); Osmolality,Calculated 295.1 MOS/KG (273-304); Potassium 4.4 MMOL/L (3.5-5.1)
[2017-10-18] MEDS: DEXTROSE 5% NACL 0.9% 1,000 ML IV SCH ×2 (07:20→16:11)
[2017-10-18] MEDS: FLUoxetine 20 MG CAPSULE PO SCH (09:55)
[2017-10-18] MEDS: DIVALPROEX 500 MG TABLET PO SCH ×2 (09:55→21:09)
[2017-10-18] MEDS: DOCUSATE SODIUM 100 MG CAPSULE PO SCH ×2 (09:55→21:09)
[2017-10-18] MEDS: PANTOPRAZOLE 40 MG VIAL IV SCH (10:08)
[2017-10-18] MEDS: BENZTROPINE 1 MG TABLET PO SCH ×2 (15:34→21:08)
[2017-10-18] MEDS ORDERED: HALOPERIDOL 5 MG/ML AMP IV PRN (16:09)
[2017-10-18] MEDS: LEVOFLOXACIN INJ 750 MG in PREMIX 1 EACH IV SCH (16:33)
[2017-10-18] MEDS: ENOXAPARIN 80 MG/0.8 ML SYRINGE SUBCUT SCH (16:34)
[2017-10-18 18:24] LABS: Hepatitis A Ab IgM Quant 0.32 Index; Hepatitis A Ab IgM Result Negative (Negative); Hepatitis B Core IgM Quant 0.19 Index; Hepatitis B Core IgM Result Negative (Negative); Hepatitis B Surface Ag Quant 0.58 Index; Hepatitis B Surface Ag Result Negative (Negative); Hepatitis C Virus Ab Quant 0.27 Index; Hepatitis C Virus Ab Result Negative (Negative)
[2017-10-18] MEDS: LURASIDONE 40 MG TABLET PO SCH (21:07)
[2017-10-18] MEDS: QUEtiapine 100 MG TABLET PO SCH (21:08)
[2017-10-18] MEDS: HALOPERIDOL 5 MG/ML AMP IM PRN (21:14)
[2017-10-19] MEDS: ceFAZolin 2,000 MG in SYRINGE 1 EACH IV SCH ×3 (00:52→16:38)
[2017-10-19] MEDS: HALOPERIDOL 5 MG/ML AMP IM PRN (03:25)
[2017-10-19] MEDS: ENOXAPARIN 80 MG/0.8 ML SYRINGE SUBCUT SCH ×2 (05:04→16:40)
[2017-10-19] MEDS: DEXTROSE 5% NACL 0.9% 1,000 ML IV SCH ×2 (06:01→10:05)
[2017-10-19 06:09] LABS: Basophils % 0.3 % (0.0-0.8); Eosinophils # 0.1 10*3/uL (0.0-0.87); Eosinophils % 0.7 % (0.00-10.9); Hematocrit 31.1 VOL% (42.0-52.0); Immature Granulocytes % 0.8 %; Immature Granulocytes Absolute 0.09 #; Lymphocytes # 1.4 10*3/uL (1.4-4.0); Lymphocytes % 13.4 % (21.2-54.2); Mean Corpuscular HGB Conc 32.2 GM/DL (32-36); Mean Corpuscular Hemoglobin 29 PG (27-34); Mean Corpuscular Volume 89.9 FL (87-102); Mean Platelet Volume 9.2 FL (9.6-12.0); Monocytes # 1.1 10*3/uL (0.11-0.8); Monocytes % 9.9 % (1.7-12.7); Neutrophils % 74.9 % (38.7-73.9); Platelet Count 410 T/CUMM (130-400); Red Blood Count 3.46 MC/CUMM (3.8-5.5); Red Cell Distribution Width 17.2 % (9.3-17.3); White Blood Count 10.7 T/CUMM (4-12)
[2017-10-19 06:39] LABS: Alanine Aminotransferase 17 U/L (16-61); Alkaline Phosphatase 220 U/L (45-117); Aspartate Amino Transferase 31 U/L (0-37); Bilirubin,Total < 0.39 MG/DL (0.2-1.0); Blood Urea Nitrogen 16 MG/DL (7-18); Calcium 7.6 MG/DL (8.5-10.1); Glucose 59 MG/DL (74-106); Osmolality,Calculated 290.4 MOS/KG (273-304); Potassium 4.1 MMOL/L (3.5-5.1); Sodium 147 MMOL/L (136-145); Total Protein 5.5 G/DL (6.4-8.3)
[2017-10-19 06:46] LABS: Band Neutrophils 59 % (0-10); Eosinophils 1 % (0-10); Lymphocytes 6 % (20-55); Segmented Neutrophils 29 % (50-85); Total Cells Counted 100
[2017-10-19 06:47] LABS: Calcium 7.4 MG/DL (8.5-10.1); Osmolality,Calculated 290.4 MOS/KG (273-304); Potassium 4.1 MMOL/L (3.5-5.1)
[2017-10-19 06:47] LABS: Anisocytosis 1+; Poikilocytosis 1+; Target Cells 1+
[2017-10-19] MEDS: DIVALPROEX 500 MG TABLET PO SCH ×2 (10:05→21:51)
[2017-10-19] MEDS: PANTOPRAZOLE 40 MG VIAL IV SCH (10:06)
[2017-10-19] MEDS: DOCUSATE SODIUM 100 MG CAPSULE PO SCH ×2 (10:08→21:51)
[2017-10-19] MEDS: FLUoxetine 20 MG CAPSULE PO SCH (10:08)
[2017-10-19] MEDS: BENZTROPINE 1 MG TABLET PO SCH ×2 (10:08→21:51)
[2017-10-19] MEDS ORDERED: FUROSEMIDE 40 MG/4 ML VIAL IV SCH (16:00)
[2017-10-19] MEDS: FUROSEMIDE 40 MG/4 ML VIAL IV SCH (16:42)
[2017-10-19] MEDS: LURASIDONE 40 MG TABLET PO SCH (21:51)
[2017-10-19] MEDS: QUEtiapine 100 MG TABLET PO SCH (21:51)
[2017-10-20] MEDS: ceFAZolin 2,000 MG in SYRINGE 1 EACH IV SCH ×3 (00:53→17:29)
[2017-10-20] MEDS: ENOXAPARIN 80 MG/0.8 ML SYRINGE SUBCUT SCH ×2 (05:32→17:29)
[2017-10-20 06:37] LABS: Basophils % 0.2 % (0.0-0.8); Eosinophils % 0.4 % (0.00-10.9); Hemoglobin 10.4 GM/DL (14.0-18.0); Immature Granulocytes % 1.1 %; Lymphocytes # 1.7 10*3/uL (1.4-4.0); Lymphocytes % 18.3 % (21.2-54.2); Mean Corpuscular HGB Conc 32.5 GM/DL (32-36); Mean Corpuscular Hemoglobin 29 PG (27-34); Mean Corpuscular Volume 88.9 FL (87-102); Mean Platelet Volume 9.9 FL (9.6-12.0); Monocytes # 0.9 10*3/uL (0.11-0.8); Monocytes % 9.6 % (1.7-12.7); Neutrophils # 6.4 10*3/uL (1.4-7.4); Neutrophils % 70.4 % (38.7-73.9); Platelet Count 347 T/CUMM (130-400); White Blood Count 9.2 T/CUMM (4-12)
[2017-10-20 07:01] LABS: Albumin 1.2 G/DL (3.4-5.0); Bilirubin,Total 0.5 MG/DL (0.2-1.0); Calcium 7.8 MG/DL (8.5-10.1); Osmolality,Calculated 287.7 MOS/KG (273-304); Potassium 3.7 MMOL/L (3.5-5.1); Total Protein 6.1 G/DL (6.4-8.3)
[2017-10-20 07:04] LABS: Atypical Lymphocytes Few; Band Neutrophils 6 % (0-10); Burr Cells 1+; Lymphocytes 12 % (20-55); Platelet Estimate Adequate; Segmented Neutrophils 76 % (50-85); Target Cells Slight; Total Cells Counted 100
[2017-10-20] MEDS: PANTOPRAZOLE 40 MG VIAL IV SCH (09:32)
[2017-10-20] MEDS: FUROSEMIDE 40 MG/4 ML VIAL IV SCH (09:45)
[2017-10-20] MEDS ORDERED: PROPOFOL 200 MG/20 ML VIAL IV ONE (10:01)
[2017-10-20] MEDS ORDERED: LIDOCAINE 100 MG/5 ML SYRINGE ONE (10:01)
[2017-10-20] MEDS ORDERED: DEXTROSE 50% 25 GM/50 ML VIAL IV ONE (10:25)
[2017-10-20] MEDS: BENZTROPINE 1 MG TABLET PO SCH (13:23)
[2017-10-20] MEDS: DOCUSATE SODIUM 100 MG CAPSULE PO SCH (13:24)
[2017-10-20] MEDS: FLUoxetine 20 MG CAPSULE PO SCH (13:24)
[2017-10-20] MEDS: DIVALPROEX 500 MG TABLET PO SCH (13:24)
[2017-10-20 17:55] VITALS: BP 123/86
== END 2017-10-20 17:00 | DRG 498 ==
LOC: N.ED 17:52 → SUATTDRO 21:28 → N.EDINP 21:28 → SUPCPDRO 21:28 → N.EDINP 22:25 → N.3E 22:30
PROVIDERS: ADMIT Hospitalist; ATTEND Internal Medicine